=== PATIENT | male | born 1980 | race Caucasian/White ===

== ENCOUNTER 2025-03-14 19:37 | Emergency (ER) | payer OTHER, BC, SELFPAY ==
--- OUTSIDE RECORDS SUMMARY | 2025-03-14 19:45 | XMS_ITS | Clinical Summary ---
Author Organization [address] Address [address] [place] [id number] Care Team Providers Care Training Developer Name Role Phone Brijesh Chauhan MD Primary Care Provid er Allergies No known active allergies Medications venlafaxine XR (EFFEXOR-XR) 75 mg 24 hr capsuleIndicati ons:Adjustment disorder with anxious mood Take 1 capsule (75 mg total) by mouth daily Take with food. 90 capsule 01/31/2019 Active Active Problems No known active problems Surgical History Surgery Date Site/Laterality Comments WISDOM TOOTH EXTRACTION Medical History Medical History Date Comments Adjustment disorder with anxious mood Insomnia Allergies Family History Medical History Relation Name Comments Hyperlipidemia Father Hypertension Father Stroke Maternal Grandfather Hypertension Maternal Grandmother Hyperlipidemia Mother Hypertension Mother Rectal cancer Mother Heart disease Paternal Grandfather Heart disease Paternal Grandmother Relation Name Status Comments Brother Alive Father Alive Maternal Grandfather Maternal Grandmother Mother Alive Paternal Grandfather Paternal Grandmother Social History Tobacco Use Types Packs/Day Years Used Date Smoking Tobacco: Never Smokeless Tobacco: Never Alcohol Use Standard Drinks/Week Comments Yes 0 (1 standard drink = 0.6 oz pur e alcohol) AUDIT-C Answer Date Recorded Frequency of Alcohol Consumption 2-4 times a mon11/21/2018 Average Number of Drinks Not on file 019 Frequency of Binge Drinking Not on file 11/05 Personal Safety Answer Date Recorded Getting School Help Needed Not on file 10/21 Sex and Gender Information Value Date Recorded Sex Assigned at Not on file Legal Sex Male 11:20 AM CDT Gender Identity Not on file Sexual Orientation Not on file 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 Not on file Not on file Obstetrics History Last Filed Vital Signs Vital Sign Reading Time Taken Comments Blood Pressure 114/70 11/21/2018 12:49 PM CDT Pulse 68 11/21/2018 12:49 PM CDT Temperature 36.7 C (98.1 F) 11/21/2018 12:49 PM CDT Respiratory Rate 16 11/21/2018 12:49 PM CDT Oxygen Saturation - - Inhaled Oxygen Concentration - - Weight 82.6 kg (182 lb) 11/21/2018 12:49 PM CDT Height 184.2 cm (6' 0.5) 11/21/2018 12:49 PM CD T Body Mass Index 24.34 11/21/2018 12:49 PM CDT Plan of Treatment Not on file Insurance [facility]PPO Address: [place] [address] Care Teams Training Developer Relationship Specialty Start Date End Date Brijesh Chauhan MD [address] [place] [address] PCP - General Family Medicine 10/27/18
[2025-03-14 19:46] VITALS: BP 143/90; PULSE 80; RESP 18; TEMP 36.9; O2SAT 100
--- NOTE | 2025-03-14 19:47 | ED.SKABFB ---
HPI - Skin/Abscess/Foreign Bdy General Chief complaint: Skin/Abscess/Foreign Body Stated complaint: wasp sting/right ankle swollen Time Seen by Provider: 03/14/25 19:47 Source: patient Mode of arrival: ambulatory Limitations: no limitations History of Present Illness HPI narrative: 44 yo M presents with wasp sting to R ankle. Was stung yesterday. States no pain or itching. Tonight noticed swelling. Concerned for allergic reaction. All systems reviewed and negative except as noted above. Related Data Allergies Allergy/AdvReac Type Severity Reaction Status Date / Time No Known Allergies Allergy Verified 03/14/25 19:49 PMFSH Comments At time of signature, agree with nursing past medical, surgical, social and family history. There is no relevant family history pertinent to the presenting complaint. Exam Narrative: GENERAL: This is a well-nourished, well-developed patient, in no apparent distress. HEAD: normocephalic, atraumatic. EYES: PERRL. Sclera clear/white. Vision is grossly intact. EARS: External ears normal NOSE: External nose normal NECK: Neck supple, non-tender without lymphadenopathy, masses or thyromegaly. CARDIOVASCULAR: Regular rate and rhythm without murmurs, gallops, or rubs. RESPIRATORY: Clear to auscultation. Breath sounds equal bilaterally. No wheezes, rales, or rhonchi. SKIN: warm, Dry, intact with no suspicious lesions or rash, good texture and turgor. area of bruising to R ankle approx. 3x5cm. no significant erythema. moderate swelling to foot/ankle. no warmth or tenderness noted. NEURO: awake, alert, and oriented to person, place and time. There were no obvious focal neurologic abnormalities. EXTREMITIES: No joint tenderness, effusion, or edema noted. Course Course Level of Care: Express Care Visit Vital Signs Vital signs: Reviewed MDM - Skin/Abscess/Foreign Bdy MDM Narrative Medical decision making narrative: will treat what sting to right ankle with prednisone, triamcinolone and recommend [id number] Zyrtec. Recommend elevation. Differential Diagnosis Differential diagnosis: Likely cellulitis, eczema, insect bites and contact dermatitis Discharge Plan Discharge Clinical Impression: Accidental wasp sting Patient Disposition: Home Condition: Stable Instructions: Insect Bite or Sting (ED) Additional Instructions: Take prednisone as prescribed. Apply steroid cream sparingly to affected area. Take a antihistamine daily such as Zyrtec while treating what sting. Elevate when at rest. May apply ice as needed. Follow-up with your doctor if not improving. Patient Language: [place] Prescriptions: New prednisone 20 mg tablet 40 mg PO DAILY 5 Days Qty: 10 0RF triamcinolone acetonide 0.1 % cream 1 applic topical BID PRN (Reason: insect bite) Qty: 30 0RF Follow-up/Referrals: PHYSICIAN,CLERICAL ORDER FILLER [Primary Care Provider] - Time of Disposition: 19:55
== END 2025-03-14 20:01 | disposition home or self-care (01) ==
PROVIDERS: Emergency Provider Nurse Practitioner Family
DX: T63.461A Toxic effect of venom of wasps, accidental (unintentional), initial encounter (principal)
CPT/HCPCS: 99203; G0463